=== PATIENT | male | born 1965 | race Native Hawaiian/Other Pacific Islander ===

== ENCOUNTER 2021-08-12 14:43 | Emergency (ER) | payer OTHER ==
[~2021-08-12] VITALS: Ht 180.3 cm; Wt 181.4 kg
[2021-08-12 15:17] LABS: PLATELET COUNT 146 K/uL (142-355)
[2021-08-12 18:00] VITALS: BP 160/71; TEMP 98.9
== END 2021-08-12 18:00 | disposition short-term general hospital (02) ==
LOC: ED 14:43
PROVIDERS: Family Medicine
DX: I50.9 Heart failure, unspecified (principal); J18.0 Bronchopneumonia, unspecified organism
CPT/HCPCS: 36415; 80053; 82550; 83880; 84484; 85027; 87635; 93005; 96374; 96375; 99284; 99285; J1940; J2930; U0003

== ENCOUNTER 2021-10-06 12:55 | Outpatient (CLI) | payer OTHER | END 2021-10-06 18:53 | disposition home or self-care (01) | LOC: RAD 12:55 | PROVIDERS: ATTEND Internal Medicine | DX: J44.9 Chronic obstructive pulmonary disease, unspecified (principal) ==